=== PATIENT | female | born 2005 | race Caucasian/White ===

== ENCOUNTER 2023-02-24 21:35 | Emergency (ER) | payer BC, SELFPAY ==
[2023-02-24 21:40] VITALS: BP 147/103; PULSE 74; RESP 16; TEMP 36.4; O2SAT 98
--- NOTE | 2023-02-24 21:40 | CRLHL7_ITS ---
For Patients: As a result of the Cures Act, medical imaging exams and procedure reports are released immediately into your electronic medical record. You may view this report before your referring provider. If you have questions, please contact your health care provider. Indication: Trauma. Technique: Right foot, 3 views. Comparison: None. Findings: Bones: Alignment is normal. No fractures or bone lesions. Joint spaces: Unremarkable. Soft tissues: Unremarkable. Impression: No sign of acute injury. Dictated by Rico Manuel MD @ 02/24/2023 11:50:56 PM (Electronically Signed)
--- NOTE | 2023-02-24 21:40 | CRLHL7_ITS ---
For Patients: As a result of the Cures Act, medical imaging exams and procedure reports are released immediately into your electronic medical record. You may view this report before your referring provider. If you have questions, please contact your health care provider. INDICATION: Fall, pain. TECHNIQUE: Lumbar spine 3 view. COMPARISON: None. FINDINGS: Bones: Alignment is normal. No fractures or significant bone lesions. Joints: Disc spaces and facets are unremarkable. Soft tissues: Right upper quadrant clips likely related to prior cholecystectomy. IUD noted within the pelvis.. Dictated by Rico Manuel MD @ 02/24/2023 11:52:13 PM (Electronically Signed)
--- NOTE | 2023-02-24 21:40 | CRLHL7_ITS ---
For Patients: As a result of the Century Cures Act, medical imaging exams and procedure reports are released immediately into your electronic medical record. You may view this report before your referring provider. If you have questions, please contact your health care provider. Indication: Trauma. Technique: Right ankle, 3 views. Comparison: None. Findings/Impression: Bones: Alignment is normal. No fractures or bone lesions. No sign of acute injury. Joint spaces: Unremarkable. Soft tissues: Mild soft tissue swelling surrounding the ankle.. Dictated by Rico Manuel MD @ 02/24/2023 11:52:48 PM (Electronically Signed)
--- NOTE | 2023-02-24 21:48 | ED_ITS ---
HPI - Extremity Injury (Lower) General Date Seen: 02/24/23 Chief Complaint: Extremity Pain/Injury, Lower Stated Complaint: fall on ankle/foot Time Seen by Provider: 02/24/23 21:40 Source: patient and RN notes reviewed Mode of arrival: wheelchair Limitations: no limitations History of Present Illness HPI Narrative: This 17-year-old female is brought back in a wheelchair with complaint of pr imarily right ankle and foot pain. She was going down steps, slid and her foot and ankle went under her. She is also complaining of low back pain. She does have baseline low back issues, states she has a disc issue in her back. She did land on her back, has increased pain. No neurologic changes on questioning from her back. She does feel like the toes are may be able tingly on the right foot at times. She is moaning, breathing heavily at times as she moves from the wheelchair to the bed. Does not stand on the right foot when she moves to the bed. She does notably hold the leg up as she is moving over to the bed from the wheelchair. She did not hit her head, no loss of consciousness. Nothing else is injured. This happened just prior to arrival. MD complaint: ankle injury, foot injury and other (Low back) Related Data Allergies Allergy/AdvReac Type Severity Reaction Status Date / Time azithromycin [From Zithromax] Allergy Intermediate Hives Verified 02/24/23 21:43 codeine Allergy Intermediate Hives Verified 02/24/23 21:43 guaifenesin [From Robitussin] Allergy Intermediate Hives Verified 02/24/23 21:43 Review of Systems Narrative: As per HPI. Exam Const: Vital Signs, click to edit/add: Vital Signs - 24 hr 02/24/23 21:40 02/24/23 22:57 Temperature 97.5 F L Pulse Rate [Right Pulse Oximeter] 74 52 L Respiratory Rate 16 18 Blood Pressure [Le ft Upper Arm] 147/103 H 141/58 H Pulse Oximetry 98 97 Oxygen Delivery Me thod Room Air Room Air This 17-year-old female is breathing rapidly at times, does complain of pain when I palpate midline throughout her lumbar spine, bilaterally paraspinous and out from there in the soft tissues. I see no evidence of any ecchymosis or abrasion, no traumatic change of the skin. She did transfer herself over from the wheelchair to the bed, did hold the right leg up but did not step on it. She has no pain around the knee, no effusion. She complains of pain diffusely about the ankle, over the medial malleolus but more so the lateral malleolus, over the ankle mortise, over the right 5th metatarsal and over the dorsum of the midfoot and into the metatarsals. States she can feel me touch her toes but sta neal they feel numb and tingly. Foot is warm, normal coloration. The ankle may have little more swelling about it when I compare it to her left side. She indeed does seem somewhat anxious on arrival. Documenting provider has reviewed patient's vital signs: yes Course Course ED Course: Reviewed with patient that we would be getting x-rays. Will do her lumbar spine, her right ankle and foot is am not able to isolate this to just the ankle or foot. We should be able to get these quickly at this time. She is hemodynamically stable. Will continue to monitor her here. When she comes back from x-ray, will have staff get her an ice pack for the foot and ankle. Reevaluation(s) Time of Reevaluation #1: 22:52 Reevaluation #1: Patient has ice pack on, is resting comfortably. Reviewed with her that I do not see any acute pathology on my preliminary review of all 3 sets of x-rays. We do need to wait for radiology over-read. She has not taken any Tylenol or ibuprofen, did discuss getting her something. Agreed upon 1000 mg of Tylenol. Time of Reevaluation #2: 23:47 Reevaluation #2: Updated patient that her images were going to be read next, she was next on the list. Reviewed that there was a back log of radiology films and they were behind. Hopefully she will be out of here soon. Time of Reevaluation #3: 23:55 Reevaluation #3: Images have been read, reviewed with patient there are no fractures. She does have a sprain of her ankle. We will get her the gel cast. Vital Signs Vital signs: Initial Vital Signs Temperature 97.5 F L 02/24/23 21:40 Temperature Source Temporal Artery Scan 02/24/23 21:40 Pulse Rate 74 02/24/23 21:40 Pulse Rhythm Regular 02/24/23 21:40 Respiratory Rate 16 02/24/23 21:40 Blood Pressure 147/103 H 02/24/23 21:40 Blood Pressure Mean 117 H 02/24/23 21:40 Blood Pressure Position Semi-Fowlers 02/24/23 21:40 Pulse Oximetry 98 02/24/23 21:40 Oxygen Delivery Method Room Air 02/24/23 21:40 Vital Signs Temperature 97.5 F L 02/24/23 21:40 Pulse Rate 74 02/24/23 21:40 Respiratory Rate 16 02/24/23 21:40 Blood Pressure 147/103 H 02/24/23 21:40 Pulse Oximetry 98 02/24/23 21:40 Oxygen Delivery Method Room Air 02/24/23 21:40 Temperature 97.5 F L 02/24/23 21:40 Pulse Rate 52 L 02/24/23 22:57 Respiratory Rate 18 02/24/23 22:57 Blood Pressure 141/58 H 02/24/23 22:57 Pulse Oximetry 97 02/24/23 22:57 Oxygen Delivery Method Room Air 02/24/23 22:57 MDM - Extremity Injury (Lower) Imaging Data XR lumbar spine: Attestation: I have reviewed the pertinent imaging results. My impression: I do not appreciate any significant pathology on her lumbar films, await Radiology over-read. Radiologist's impression: Patient: [facility] Facility:?[facility] Patient ID:?[id number] Site Patient ID:?[id number]. Site :?[id number] Study:?XRay Spine Lumbar 3 VIEWS-02/24/2023 10:15:05 PM Ordering Physician:Dany Mederos Final Report: INDICATION: Fall, pain. TECHNIQUE: Lumbar spine 3 view. COMPARISON: None. FINDINGS: Bones: Alignment is normal. No fractures or significant bone lesions. Joints: Disc spaces and facets are unremarkable. Soft tissues: Right upper quadrant clips likely related to prior cholecystectomy. IUD noted within the pelvis.. Dictated by Rico Manuel MD @ 02/24/2023 11:52:13 PM (Electronic Signature) XR right ankle: Attestation: I have reviewed the pertinent imaging results. My impression: I do not see any fracture. Radiologist's impression: Patient: [facility] Facility:?[facility] Patient ID:?[id number] Site Patient ID:?[id number]. Site :?2003 Study:?XRay Extremity Right ANKLE 3 VIEWS-02/24/2023 10:15:44 PM Ordering Physician:Dany Mederos Final Report: Indication: Trauma. Technique: Right ankle, 3 views. Comparison: None. Findings/Impression: Bones: Alignment is normal. No fractures or bone lesions. No sign of acute injury. Joint spaces: Unremarkable. Soft tissues: Mild soft tissue swelling surrounding the ankle.. Dictated by Rico Manuel MD @ 02/24/2023 11:52:48 PM (Electronic Signature) XR right foot: Attestation: I have reviewed the pertinent imaging results. My impression: No acute pathology or fracture on my preliminary review. Radiologist's impression: Patient: [facility] Facility:?[facility] Patient ID:?[id number] Site Patient ID:?[id number]. Site :?2003 Study:?XRay Extremity Right FOOT 3 VIEWS-02/24/2023 10:14:04 PM Ordering Physician:?Fide Mederos Final Report: Indication: Trauma. Technique: Right foot, 3 views. Comparison: None. Findings: Bones: Alignment is normal. No fractures or bone lesions. Joint spaces: Unremarkable. Soft tissues: Unremarkable. Impression: No sign of acute injury. Dictated by Rico Manuel MD @ 02/24/2023 11:50:56 PM (Electronic Signature) Critical Care Time Critical Care Time Critical Care Time: No Discharge Plan Discharge Clinical Impression: Fall Qualifiers: Encounter type: initial encounter Qualified Code(s): W19.XXXA - Unspecified fall, initial encounter Low back pain Qualifiers: Chronicity: acute Back pain laterality: bilateral Sciatica presence: without sciatica Qualified Code(s): M54.50 - Low back pain, unspecified Ankle sprain Qualifiers: Encounter type: initial encounter Involved ligament of ankle: unspecified ligament Laterality: right Qualified Code(s): S93.401A - Sprain of unspecified ligament of right ankle, initial encounter Patient Disposition: Home, Self-Care Condition: Stable Instructions: Ankle Sprain (ED), Acute Low Back Pain (ED) Additional Instructions: Ice painful areas for the next few days to help decrease inflammation. Tylenol and/or ibuprofen per bottle directions as needed for pain control. Follow-up with your primary care provider if your symptoms are not improving over the next week or if there are other concerns. May resume activity as tolerated. Use the gel splint for comfort instability initially. Activity Level: Activity as Tolerated Follow Up/Referrals: Judi Pettit, THERESE, COMMERCIAL INTERN [Primary Care Provider] - Stand Alone Forms: [place] Info Instructions
[2023-02-24] MEDS: ACETAMINOPHEN 500 MG TABLET 1000 MG PO (22:56)
[2023-02-24 22:57] VITALS: BP 141/58; PULSE 52; RESP 18; O2SAT 97
== END 2023-02-25 00:17 | disposition home or self-care (01) ==
PROVIDERS: Emergency Provider Family Medicine; PCP Nurse Practitioner Family
DX: M54.50 Low back pain, unspecified (principal); S93.401A Sprain of unspecified ligament of right ankle, initial encounter; W10.9XXA Fall (on) (from) unspecified stairs and steps, initial encounter
CPT/HCPCS: 29515; 72100; 73610; 73630; 99283; 99284; A9270

== ENCOUNTER 2023-05-10 16:17 | Emergency (ER) | payer BC, SELFPAY ==
[2023-05-10 16:33] VITALS: BP 131/89; PULSE 81; RESP 18; TEMP 36.4; O2SAT 94; BMI 43.9
--- NOTE | 2023-05-10 17:06 | ED_ITS ---
HPI - General Adult General Chief complaint: Altered Mental Status Stated complaint: Headache, back ache, confusion Time Seen by Provider: 05/10/23 16:58 History of Present Illness HPI narrative: This 17-year-old female comes in with her mother. She is reporting a headache that began about 2 or 3 hours prior to arrival. She also reports some jerking sensations in the posterior aspect of her neck. She includes some feeling of confusion also in her ability to think. She does get headaches on occasion. She states that this headache is mostly in the backside of her neck and head. She does not report any nausea or vomiting. Related Data Allergies Allergy/AdvReac Type Severity Reaction Status Date / Time azithromycin [From Zithromax] Allergy Intermediate Hives Verified 02/24/23 21:43 codeine Allergy Intermediate Hives Verified 02/24/23 21:43 guaifenesin [From Robitussin] Allergy Intermediate Hives Verified 02/24/23 21:43 Review of Systems Status of ROS: Reports: 10 or more systems reviewed and unremarkable except as noted in History and below Narrative: Constitutional: No fevers, no weight gain or loss. Eyes: No discharge. No vision changes. HENT: No congestion, no sore throat, no ear pain. Cardiovascular: No chest pain, no palpitations. Respiratory: No shortness of breath, no wheezes, no cough. Gastrointestinal: No abdominal pain, no vomiting, no diarrhea. Genitourinary: No dysuria, no hematuria. Musculoskeletal: Normal range of motion. Skin: No rashes, no pruritis. Neurological: No dizziness, weakness, sensory change, speech change. Repetitive jerking sensation in her posterior neck. Endo/Heme/Allergies: No bruising or bleeding. No polydipsia. Pysch: no suicidality, no anxiety, no insomnia. All other systems reviewed and are negative. Exam Narrative: Exam Narrative: Constitutional: Well-developed, well-nourished, no acute distress. HEENT: Normocephalic, atraumatic. Neck: Normal range of motion. Nontender. Supple. Heart: Regular. No murmurs. Normal rate. Intact distal pulses. Lungs: Clear to auscultation. No chest discomfort. No wheezes, rhonchi, or rales. Abdomen: Normal bowel sounds. Nontender. No rebound tenderness. Genitalia: Deferred. Back: No midline tenderness. Normal range of motion. Extremities: Normal range of motion. No injury. Skin: Intact. No rash. Warm. No erythema or pallor. Neurologic: No altered sensation. No weakness. Alert and oriented. No facial asymmetry. Tongue is midline. [id number] is normal. No pronator drift. Cigar Making Machine Operator strength is equal bilaterally. She is able to raise each leg to my hand. The myoclonic jerks involving her posterior neck are repetitive except when she was undergoing these neurologic tests she did not have any such jerks. Psychiatric: No suicidality. No anxiety or depression. No insomnia. Nursing notes and vitals signs are reviewed. Const: Vital Signs, click to edit/add: Vital Signs - 24 hr 05/10/23 16:33 Temperature 97.5 F L Pulse Rate [Right] 81 Respiratory Rate 18 Blood Pressure [Ri ght Upper Arm] 131/89 Pulse Oximetry 94 Oxygen Delivery Me thod Room Air Course Vital Signs Vital signs: Initial Vital Signs Temperature 97.5 F L 05/10/23 16:33 Temperature Source Temporal Artery Scan 05/10/23 16:33 Pulse Rate 81 05/10/23 16:33 Pulse Rhythm Regular 05/10/23 16:33 Pulse Strength 3+ Normal 05/10/23 16:33 Respiratory Rate 18 05/10/23 16:33 Blood Pressure 131/89 05/10/23 16:33 Blood Pressure Mean 103 05/10/23 16:33 Blood Pressure Position Supine 05/10/23 16:33 Pulse Oximetry 94 05/10/23 16:33 Oxygen Delivery Method Room Air 05/10/23 16:33 Vital Signs Temperature 97.5 F L 05/10/23 16:33 Pulse Rate 81 05/10/23 16:33 Respiratory Rate 18 05/10/23 16:33 Blood Pressure 131/89 05/10/23 16:33 Pulse Oximetry 94 05/10/23 16:33 Oxygen Delivery Method Room Air 05/10/23 16:33 Temperature 97.5 F L 05/10/23 16:33 Pulse Rate 81 05/10/23 16:33 Respiratory Rate 18 05/10/23 16:33 Blood Pressure 131/89 05/10/23 16:33 Pulse Oximetry 94 05/10/23 16:33 Oxygen Delivery Method Room Air 05/10/23 16:33 Medications Administered Medications: Discontinued Medications Generic Name Dose Route Start Last Admin Trade Name Thiago PRN Reason Stop Dose Admin Diphenhydramine HCl 25 mg 05/10/23 17:05 05/10/23 17:34 Diphenhydramine 50 Mg/Ml Inj IVP 05/10/23 17:06 25 mg ONCE ONE Administration Ketorolac Tromethamine 30 mg 05/10/23 17:05 05/10/23 17:32 Ketorolac 30 Mg/Ml Inj IVP 05/10/23 17:06 30 mg ONCE ONE Administration Lorazepam 0.5 mg 05/10/23 17:05 05/10/23 17:35 Lorazepam 2 Mg/Ml Inj IV 05/10/23 17:06 0.5 mg ONCE ONE Administration Ondansetron HCl 4 mg 05/10/23 17:05 05/10/23 17:35 Ondansetron 2 Mg/Ml Inj IVP 05/10/23 17:06 4 mg ONCE ONE Administration Medical Decision Making MDM Narrative Medical decision making narrative: This patient comes in reporting headache and some jerking of the muscles in the posterior neck. This began about 2 or 3 hours prior to arrival. Her neurologic exam is normal. Her vital signs also are all within normal range. I did take her through simple neurologic testing and when doing so the jerking sensation in her neck stopped as she was concentrating on cooperating with the neurologic tests. The patient did receive IV doses of Toradol 30 mg, Ativan 0.5 mg, and Benadryl 25 mg. This brought great resolution to her symptoms. She is okay to be discharged home. I did provide a return to work note. Discharge Plan Discharge Clinical Impression: Migraine Patient Disposition: Home w/ Parent or Adult Condition: Improved Additional Instructions: Use [id number] medicines as needed and directed. Follow up with MD return if worsening. Follow Up/Referrals: Judi Pettit, THERESE, EMPLOYEE SERVICE OFFICER [Primary Care Provider] - Stand Alone Forms: [employer] Info Instructions
--- OUTSIDE RECORDS SUMMARY | 2023-05-10 17:24 | XMS_ITS | Continuity of Care Document ---
Author Name Unknown Organization [facility] Address [address] [address] [place] [address] Phone Care Team Providers Care Hooker Operator Name Role Phone Abdiel GRIMM, Gisselle Unavailable Unavaila ble Allergies, Adverse Reactions, Alerts Substance Reaction Status Criticality guaifenesin Active No Information CODEINE PHOSPHATE Active No Informa tion azithromycin Active No Information WARNIN allergy(ies) could not be collected because the type is not supported. Please contact the source practice for further details. Medications Medication Instructions Dosage Effective Dates (start - stop) Status Comments Allergy Shots (unknown strength) inject 1 syringe by intramuscular route every 3 - 14 days Not Available - Active metformin 500 mg tablet take 1 tablet by oral route 2 times every day with morning and evening meals 500 MG - Active Claritin 10 mg tablet take 1 tablet by oral route every day 10 MG - Active Vitamin D3 2,000 unit capsule take 1 capsule by oral route every day 1 capsule - Active montelukast 10 mg tablet take 1 tablet by oral route every day in the evening 10 MG - Active Qvar 40 mcg/actuation Metered Aerosol oral inhaler inhale 2 puff by inhalation route 2 times every day - Active fluticasone 50 mcg/actuation nasal spray,suspension inhale 1 spray by intranasal route every day in each nostril 50 MCG - Active azelastine 137 mcg (0.1 %) nasal spray aerosol spray 2 spray by intranasal route 2 times every day in each nostril as needed 2 spray - Active ProAir HFA 90 mcg/actuation aerosol inhaler inhale 2 puff by inhalation route every 4 - 6 hours as needed - Active albuterol sulfate 2.5 mg/3 mL (0.083 %) solution for nebulization inhale 3 milliliter by nebulization route every day as needed 2.5 MG - Active multivitamin tablet take 1 tablet by oral route every day 1 tablet - Active omeprazole 20 mg capsule,delayed release take 2 capsule by oral route every day 30 minutes to 1 hour before a meal 40 MG - No Longer Active nortriptyline 25 mg capsule take 1 capsule by oral route every day 25 MG - No Longer Active Allergy Shots unknown Intramuscular inject 1 dose by IM route 3- 14 times every day - No Longer Active Procedures Procedure Date Offic/outpt E&m Estab Low-mod 6 Ugi Endo; W/bx 1/mx Routine Serum Collection Offic Cons New/estab Mod Bld Ct; Hg/pltlt Ct Auto/compl 16 Sed Rate, Erythrocyte; Auto C-reactive Prot Lipase Offic Cons New/estab Mod-hi 60 07 Advance Directives Directive Yes / No Effective Date File Name No Information Encounters Encounter Description Practice Location Reason(s) For Visit Diagnoses Date Provider Providers Copied on Encounter Offic/outpt E&m Estab Low-mod [facility], [address] [address], [place], [place], [id number], [place] tel:[phone] [facility] GI Symptoms or Concerns (chief complaint) Nausea and vomiting, unspecified intactability , vomiting of unspecified typeBiliary dyskinesia 6 Abdiel Pitts. [address] [facility], [facility] [address], [place], [place], [id number], [place]. tel:[phone] Referring Provider: [place], [address] [place], [address]. tel:[phone] [facility], [address] [address], [place], [id number], tel:[phone] [facility] Biliary dyskinesia 6 No Information [facility], [address] [address], [place], [id number], tel:[phone] [facility] No Information 6 Jd Verma. [address] [facility], [facility] [address], [place], [place], [id number], [place]. tel:[phone] Referring Provider: [place], [address] [place], [address]. tel:[phone] Offic Cons New/estab Mod [facility], [address] [address], [place], [id number], tel:[phone] [facility] GI Symptoms or Concerns (chief complaint) Nausea and vomiting, unspecified intactability , vomiting of unspecified typeRUQ painObesity (BMI 30-39.9) 0 6 No Information Referring Provider: [place], [address] [place], [address]. tel:[phone] Offic Cons New/estab Mod-hi 60 [facility], [address] [address], [facility] [place] [id number], tel:[phone] [facility] Constipation Unspecified 7 No Information Family History Family Member Type Diagnosis Age At Onset Mother Problem (finding) gallbladder disease Mother Problem (finding) diverticulitis of colon Father Problem (finding) GERD Mother Problem (finding) GERD Brother Problem (finding) Thyroid disorder Immunizations Vaccine Date Status Comments Influenza virus vaccine, injectable, quadrivalent, split virus, preservative free, 3 years or older Fluarix Quad administered Note: Invalid docume nted admin date was . ; Source: Other Provider Payers Payer name Insurance type Covered democrat ID Authoriza tion(s) No Information Social History Type Description Quantity Date Captured Comments Alcohol Use Details Unknown Caffeine Use Details Unknown Tobacco Use Status No Information Smoking Status No Information Sex Female Vital Signs Date / Time: Height Weight BMI Pulse Rate Blood Pressure Temperature Respiratory Rate Body Surface Area Head Circumference Head Circ. Percentile Wt./Forrest. Percentile BMI percentile Pulse Ox Inhaled Ox 1:13 PM 66.22 in 117.300 kg (258.60 lbs) 41.4 6 kg/m eter (2) 67 /min 124/68 mm[Hg] 99 Chief Complaint And Reason For Visit From encounter dated '01/03/2016 13:30'. GI Symptoms or Concerns (chief complaint). Description: Supriya is a 10-year-old female accompanied to clinic by her mother.Supriya is here for a followup evaluation regarding her cholecystectomy. She underwent a laparoscopic cholecystectomy in September of 2015 after being diagnosed with biliary dyskinesia. Her HIDA scan was completed in September of 2015, which showed her ejection fraction to be calculated at 4.5%. She is overall feeling very well. She states that the removal of the gallbladder has helped all of her pain significantly. She says she feels really well. She is getting used to eating all sorts of foods again. She is not experiencing any diarrhea. She has a good appetite. She has one to twobowel movements per day. She denies diarrhea, blood or painful defecation. Overall, family is very pleased with her progress. She states that she will be working with a weight management clinic, although she has not started this yet. She is currently at the 99th percentile for her weight at 117.3 kilos. Reason For Referral Reason For Referral No Information Plan Of Treatment Date Type Action Status Referral Ordered: HIDA Scan WITH Ejection Fraction Appointment date/timeframe: -today ordered History Of Present Illness Encounter Date Complaint History Of Prese nt Illness GI Symptoms or Concerns Supriya i s a 10-year-old female accompanied to clinic by her mother.Supriya is here for a followup evaluation regarding her cholecystectomy. She underwent a laparoscopic cholecystectomy in September of 2015 after being diagnosed with biliary dyskinesia. Her HIDA scan was completed in September of 2015, which showed her ejection fraction to be calculated at 4.5%. She is overall feeling very well. She states that the removal of the gallbladder has helped all of her pain significantly. She says she feels really well. She is getting used to eating all sorts of foods again. She is not experiencing any diarrhea. She has a good appetite. She has one to two bowel movements per day. She denies diarrhea, blood or painful defecation. Overall, family is very pleased with her progress. She states that she will be working with a weight management clinic, although she has not started this yet. She is currently at the 99th percentile for her weight at 117.3 kilos. GI Symptoms or Concerns Supriya francois is an 9-year-old girl seen in [facility] with complaints of chronic nausea and vomiting. She had been seen in 2006 here at [facility] with constipation issues, which all resolved and she has done well for several years. However, in late June, she had a two-week period of nausea and vomiting. She had abdominal pain, but no diarrhea. Her classmate also had vomiting. Since this time, she has continued to have problems with nausea and vomiting. Her nausea lasts all day and does not seem to be made better or worse by anything in particular. She has vomiting intermittently and in the last week, vomited three to four times. Again, no specific foods or activities seem related to her vomiting. She feels like her nausea and vomiting in slowly getting worse. She is having no heartburn issues. She was started on omeprazole 40 mg once daily and Zofran as needed, but she really takes this about once a week. She has also develo Functional Status Date Functional Assessmen t No Information Instructions Date Instruction Additional Infor michelle 1. Continue the [facility] ht management program as recommended by the endocrinology clinic.2. Followup will be in this clinic just as needed.3. Mother and Supriya verbalized understanding of the above plan and had no additional questions. Related to Nausea and vomiting, unspecified intactability, vomiting of unspecified type We will obtain CBC w ith diff, C-reactive proteins, sed rate, lipase, and occult blood tests today. I will order a HIDA scan with gallbladder ejection fraction to address the possibility of biliary dyskinesia. I have also ordered an upper GI endoscopy with biopsies. I recommend followup in one month at which time all of this information should be completed and we will discuss further recommendations. Related to Nausea and vomiting, unspecified intactability, vomiting of unspecified type EGD Related to Nause a with vomiting, unspecified HIDA Scan WITH Ejection Fraction Related to Right upper quadrant pain Assessments Type Assessment Date assessment Nausea and vomiting, unspecified intactability, vomiting of unspecified type assessment Biliary dyskinesia impression The cause for Supriya 's pain was related to her biliary dyskinesia. She is significantly improved postcholecystectomy. She has been able to wean off of her omeprazole and does not experience any reflux-like symptoms. She is not experiencing diarrhea. Mental Status Date Cognitive Assessment Orientation - [place] ed to time, place, person, situation. Patient Care Teams Name Effective Dates (start - stop) Status Members No Information
[2023-05-10] MEDS: KETOROLAC 30 MG/ML inj IVP (17:32)
[2023-05-10] MEDS: diphenhydrAMINE 50 MG/ML inj 25 MG IVP (17:34)
[2023-05-10] MEDS: LORazepam 2 MG/ML inj 0.5 MG IV (17:35)
[2023-05-10] MEDS: ONDANSETRON 2 MG/ML inj 4 MG IVP (17:35)
== END 2023-05-10 18:56 | disposition home or self-care (01) ==
PROVIDERS: Emergency Provider Emergency Medicine Emergency Medical Services; PCP Nurse Practitioner Family
DX: G43.909 Migraine, unspecified, not intractable, without status migrainosus (principal)
CPT/HCPCS: 96374; 96375; 99284; J1200; J1885; J2060; J2405

== ENCOUNTER 2024-11-15 14:59 | Emergency (ER) | payer BC, SELFPAY ==
--- OUTSIDE RECORDS SUMMARY | 2024-08-31 14:10 | XMS_ITS | Encounter Summary ---
Author Organization [facility] Address [address] [place] [address]. [place] [address] Care Team Providers Care Assistant Distribution Manager Name Role Phone Judi Pettit NP Primary Care Provider [phone] Reason for Visit * Rehab Therapy Physical Therapy (Urgent: 3-5 Days) - Pending Review Specialty Diagnoses / Procedures Referred By Chao barton Referred To Contact Diagnoses Piriformis syndrome, right Strain of lumbar region, initial encounter Shivani Walters APRN [employer] [address] [place] [address] Phone: tel: fax: Referral ID Status Reason Start Date Expiration Date V isits Requested Visits Authorized [id number] Pending Review 07/24/2024 07/24/2025 1 1 Encounter Details Date Type Department Care Team (Latest Contact Info) Description 08/31/2024 2:10 PM CDT Therapy Visit [facility] [address] [place] [address] Morgan Henderson, PT [address] [phone] Low back pain (Primary Dx); Hip pain, right Social History Tobacco Use Types Packs/Day Years Used Date Smoking Tobacco: Former Cigarettes Smokeless Tobacco: Never Comments:Mom smokes outside. 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 Patient has failed to schedule further appointments. Equipment Issued: none Discharge Plan: Patient to continue home program. 08/31/24 0500 Appointment Info Signing clinician's name / credentials Morgan Henderson PT Total/Authorized Visits 6 Visits Used 2 Medical Diagnosis Right piriformis syndrome PT Tx Diagnosis Low back pain, right hip pain, core weakness Progress Note/Certification Start of Care Date 08/17/24 Onset of illness/injury or Date of Surgery 07/06/24 Therapy Frequency 1x/week Predicted Duration 6 Certification date from 08/17/24 Certification date to 09/28/24 Progress Note Completed Date 08/17/24 Department Editor Department Editor Present No GOALS PT Goals 2 PT Goal 1 Goal Identifier Standing Goal Description Patient will be able to stand for 30 minutes before onset of symptoms Rationale to maximize safety and independence with performance of ADLs and functional tasks;to maximize safety and independence within the community;to maximize safety and independence with self cares Target Date 09/28/24 PT Goal 2 Goal Identifier Walking Goal Description able to walk 30+ minutes Rationale to maximize safety and independence with performance of ADLs and functional tasks;to maximize safety and independence within the community Target Date 09/28/24 Subjective Report Subjective Report A little better. Standing, walking is better. Objective Measures Objective Measures Objective Measure 1;Objective Measure 2 Objective Measure 1 Objective Measure lx arom Details flexion 50 (HS), ext 75+. R SB +. FNTT and SLR - R and L. Cont ++ with GI PA L4, 5. Objective Measure 2 Objective Measure hip rom (ER), IR prone Treatment Interventions (PT) Interventions Therapeutic Procedure/Exercise;Neuromuscular Re-education;Manual Therapy Therapeutic Procedure/Exercise Therapeutic Procedures: strength, endurance, ROM, flexibility minutes (57825) 23 Ther Proc 1 Education on plan of care, progression of home exercise program PTRx Ther Proc 1 Piriformis Stretch Above 90 Degress Supine PTRx Ther Proc 1 - Details 1 x 30 sec PTRx Ther Proc 2 Piriformis Stretch Below 90 Degrees Supine PTRx Ther Proc 2 - Details 2 x 30 sec, R PTRx Ther Proc 3 Seated Piriformis Stretch PTRx Ther Proc 3 - Details VR PTRx Ther Proc 4 Prone Positioning PTRx Ther Proc 4 - Details 1 x 4 PTRx Ther Proc 5 Prone On Elbows PTRx Ther Proc 5 - Details 1 x 30 sec PTRx Ther Proc 6 Bridging #1 PTRx Ther Proc 6 - Details 1 x 5 x 5 sec Skilled Intervention Yes Patient Response/Progress Tolerated well Neuromuscular Re-education Neuromuscular re-ed of mvmt, balance, coord, kinesthetic sense, posture, proprioception minutes (45362) 15 Neuro Re-ed 1 education on core, posture, working on prone lying PTRx Neuro Re-ed 1 Abdominal Brace Transverse Abdominis PTRx Neuro Re-ed 1 - Details 1 x 5 x 5 sec holds. PTRx Neuro Re-ed 2 Supine Abdominal Exercise #3 (Marching) PTRx Neuro Re-ed 2 - Details 1 x 10 R and L Skilled Intervention y Patient Response/Progress rodríguez well Education Learner/Method Patient;Listening;Demonstration;Pictures/Video Education Comments Patient participated in their education Plan Home program patient participated and likes the option of using a interactive video tool like PTRx Plan for next session core, add standing, hip abd Total Session Time Timed Code Treatment Minutes 38 Total Treatment Time (sum of timed and untimed services) 38 Referring Provider: Shivani Walters documented in this encounter Plan of Treatment Not on file documented as of this encounter Visit Diagnoses Diagnosis Low back pain- Primary Lumbago Hip pain, right Pain in joint, pelvic region and thigh documented in this encounter Care Teams Assistant Distribution Manager Relationship Specialty [place] [address] [place] [address] PCP - General Family Medicine 08/17/24 documented as of this encounter
--- OUTSIDE RECORDS SUMMARY | 2024-11-15 15:01 | XMS_ITS | Clinical Summary ---
Author Organization [facility] Address [address] [place] [address]. [place] [address] Care Team Providers Care Record Tester Name Role Phone Judi Pettit NP Primary Care Provider [phone] Allergies Active Allergy Reactions Criticality Noted Date Comments Codeine Hives 03/19/2016 Codeine-Guaifenesin Hives 03/19/2012 Hives after zithromax and Robitussin AC given for cough--unclear which is etiology for reaction. Azithromycin Hives 03/19/2016 Medications Cholecalciferol (VITAMIN D3 PO) Take 2,000 Units by mouth daily. Active beclomethasone (QVAR) 40 MCG/ACT Inhaler Inhale 2 puffs into the lungs 2 times daily. Active azelastine (ASTELIN) 0.1 % nasal spray [place] 1 spray into both nostrils daily Active albuterol (PROAIR HFA, PROVENTIL HFA, VENTOLIN HFA) 108 (90 BASE) MCG/ACT inhaler Inhale 2 puffs into the lungs every 6 hours as needed for shortness of breath or wheezing. Active albuterol (2.5 MG/3ML) 0.083% nebulizer solution Take 1 vial by nebulization every 6 hours as needed for shortness of breath or wheezing. Active loratadine (CLARITIN) 10 MG tablet Take 10 mg by mouth daily. Active FLUoxetine HCl, PMDD, 20 MG TABS Take 30 mg by mouth daily. Active albuterol (PROVENTIL) (2.5 MG/3ML) 0.083% neb solutionIndicat ions:Influenza A Take 1 vial (2.5 mg) by nebulization every 6 hours as needed for shortness of breath, wheezing or cough. 90 mL 5 Active albuterol (PROAIR HFA/PROVENTIL HFA/VENTOLIN HFA) 108 (90 Base) MCG/ACT inhalerIndicati ons:Influenza A Inhale 2 puffs into the lungs every 6 hours as needed for shortness of breath, wheezing or cough. 18 g 5 Active hydrOXYzine (VISTARIL) 50 MG capsule TAKE ONE OR TWO CAPSULES BY MOUTH EVERY SIX HOURS NEEDED FOR ANXIETY OR SLEEP Active methocarbamol (ROBAXIN) 500 MG tabletIndicatio ns:Hip pain, right,Right flank pain Take 1 tablet (500 mg) by mouth 4 times daily as needed for muscle spasms. 20 tablet 5 Active Active Problems Problem Noted Date Diagnosed Date Dysmetabolic syndrome X 03/20/2016 Childhood obesity 03/19/2016 Chronic pain of both knees 03/19/2016 Chronic midline back pain, unspecified back loca tion 03/19/2016 Depression with anxiety 03/19/2016 Physical deconditioning 03/19/2016 Uncomplicated asthma, unspecified asthma severit y 03/19/2016 Acanthosis nigricans 03/19/2016 Resolved Problems Problem Noted Date Diagnosed Date Resolved Date Low back pain 08/17/2024 10/13/2024 Hip pain, right 08/17/2024 10/13/2024 Encounters Date Type Department Care Team Description 09/05/2024 9:10 AM CDT Office Visit [facility] [address] [place] [address] Tracy Roach NP Dental infection (Primary Dx) 09/05/2024 Travel 08/31/2024 2:10 PM CDT Therapy Visit [address] [address] Morgan Henderson, PT Low back pain (Primary Dx); Hip pain, right 08/31/2024 Travel 08/17/2024 10:40 AM CDT Therapy Visit [address] [address] Shivani Walters APRN CNP Skansberg, David A, PT Low back pain (Primary Dx); Piriformis syndrome, right; Strain of lumbar region, initial encounter; Hip pain, right 08/17/2024 Travel from Last 3 Months Immunizations Immunization Administration Dates Next Due Comvax (HIB/HepB) 06/19/2004,04/17/2004,02/18/20 04 DTAP (<7y) 06/19/2004,04/17/2004,02/18/2004 Pneumococcal (PCV 7) 06/19/2004,02/18/2004 Poliovirus, inactivated (IPV) 06/19/2004, 004,02/18/2004 Social History Tobacco Use Types Packs/Day Years Used Date Smoking Tobacco: Former Cigarettes Smokeless Tobacco: Never Tobacco Cessation:Counseling Given: Not Answered Comments:Mom smokes outside. 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 Gender Identity Not on file Sexual Orientation Not on file Last Filed Vital Signs Vital Sign Reading Time Taken Comments Blood Pressure 112/70 09/05/2024 9:15 AM CDT Pulse 68 09/05/2024 9:15 AM CDT Temperature 36.9 C (98.4 F) 09/05/2024 9:15 AM CDT Respiratory Rate 16 09/05/2024 9:15 AM CDT Oxygen Saturation 100% 09/05/2024 9:15 AM CDT Inhaled Oxygen Concentration - - Weight 115.7 kg (255 lb) 09/05/2024 9:15 AM CDT Height 167.6 cm (5' 6) 09/05/2024 9:15 AM CDT Body Mass Index 41.16 09/05/2024 9:15 AM CDT Plan of Treatment Health Maintenance Due Date Last Done Comments ADVANCE CARE PLANNING 2003 ANNUAL REVIEW OF HM ORDERS 2003 ASTHMA ACTION PLAN 2003 ASTHMA CONTROL TEST 2003 MENINGITIS B VACCINE (1 of 2 - Standard) 2019 YEARLY PREVENTIVE VISIT 04/27/2021 04/27/2020 PNEUMOCOCCAL VACCINE: PEDIAT RICS (0 to 5 YEARS) AND AT-RISK PATIENTS (6 to 49 YEARS) (1 of 2 - PCV) 12/08/2022 06/19/2004, 02/18/2004 CHLAMYDIA SCREENING 06/14/2023 06/14/2022, COVID-19 VACCINE (1 - 2023-2 5 season) 2024 PHQ-2 (once per calendar year) 2024 INFLUENZA VACCINE (Season Ended) 2025 02/16/2022, 04/12/2021, 04/27/2020, Additional history exists DTAP/TDAP/TD VACCINE (6 - Td or Tdap) 01/03/2026 01/04/2016, 08/27/2008, 06/19/2004, Additional history exists ZOSTER VACCINE (1 of 2) 12/08/2053 HEPATITIS B VACCINE Completed 06/19/2004, 04/17/2004, 02/18/2004 HPV VACCINE Completed 12/12/2016, 01/04/2016 HIV SCREENING Completed 12/30/2018 MENINGITIS VACCINE Completed 04/27/2020, 01/04/2016 HEPATITIS C SCREENING Completed 02/16/2022 Insurance [facility] [employer] Care Teams Record Tester Relationship Specialty [place] [address] [place] [address] PCP - General Family Medicine 08/17/24
--- OUTSIDE RECORDS SUMMARY | 2024-11-15 15:02 | XMS_ITS | Clinical Summary ---
Author Organization [employer] [facility] Address [address] [place] [address] Care Team Providers Care Skin Care Instructor Name Role Phone Ashley Mcwilliams MBBS Unavailable [phone] Peg Newberry PT Unavailable Reva Fernandes RD Unavailable Judi Pettit RECRUITMENT OFFICER Primary Care Provider [phone] Allergies Active Allergy Reactions Criticality Noted Date Comments Codeine-Guaifenesin Hives 03/19/2012 Hives after zithromax and Robitussin AC given for cough--unclear which is etiology for reaction. Azithromycin Hives 03/18/2012 Hives after zithromax and Robitussin AC given for cough--unclear which is etiology for reaction. Medications hydrOXYzine pamoate (VISTARIL) 50 mg capsuleIndicatio ns:KENDRICK (generalized anxiety disorder),Diffic ulty sleeping TAKE ONE OR TWO CAPSULES BY MOUTH EVERY SIX HOURS NEEDED FOR ANXIETY OR SLEEP 100 Capsule 5 Active albuterol HFA (ProAir HFA) 90 mcg/actuation inhalerIndicatio ns:Moderate persistent asthma, unspecified whether complicated (HC) Inhale 1-2 Puffs by mouth every 4 hours if needed for Shortness Of Breath or Wheezing. 18 g 3 5 Active sertraline 100 mg tabletIndication s:Moderate episode of recurrent major depressive disorder (HC),Generalized anxiety disorder with panic attacks Take 1.5 Tablets (150 mg) by mouth once daily in the morning. 135 Tablet 5 Active buPROPion 150 mg Extended-Release tabletIndication s:Moderate episode of recurrent major depressive disorder (HC),Generalized anxiety disorder with panic attacks Take 1 Tablet (150 mg) by mouth once daily in the morning. 90 Tablet 5 Active mometasone-formo terol (Dulera) 200-5 mcg/actuation inhalerIndicatio ns:Moderate persistent asthma, unspecified whether complicated (HC),Allergic rhinitis due to animal hair and dander Inhale 2 Puffs by mouth two times daily. And 1-2 puffs every four hours as needed for shortness of breath, up to 12 puffs a day total. 13 g 11 5 Active Hospital, Clinic, or Other Facility Administered Medication Ordered Dose Route Frequency Start Date End Date Status levonorgestrel (KYLEENA) 17.5 mcg/24 hr (5 yrs) 19.5 mg intrauterine device (IUD) 1 DeviceIndications:Encounter for IUD insertion 1 Device IU Q 5 YEARS 09/19/2021 Active Active Problems Problem Noted Date Diagnosed Date Vitamin D deficiency 09/29/2024 Morbid obesity, unspecified obesity type 024 Allergic rhinitis due to animal hair and dander 08/19/2023 Seasonal allergies 08/19/2023 Moderate persistent asthma 08/19/2023 Generalized anxiety disorder with panic attacks 04/12/2021 Morbid exogenous obesity 12/30/2020 Meralgia paresthetica of right side 12/30/2020 Moderate episode of recurrent major depressive d isorder 10/13/2020 Generalized anxiety disorder 10/13/2020 Mild persistent asthma without complication 03/20 Insomnia 02/01/2017 ADHD (attention deficit hype ractivity disorder), inattentive type 04/19/2016 Other specified anxiety disorders 04/19/2016 Depression 01/04/2016 Dysmenorrhea in adolescent 01/04/2016 Pediatric body mass index (B IN) of greater than or equal to 95th percentile for age 0801/04/2016 Overview (01/04/2016): [facility] will be seeing Dr. Mckenzie at [facility] for weight management clinic. Reactive airway disease without complication 10/2015 Metabolic syndrome 08/19/2012 Overview (01/28/2017): W Acanthosis Nigricans . See Consult Follow up note July 2012, Dr. Casanova added Metformin. Last visit 03/2016: no changes. F/u in [address] 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 Bone age advanced (age 9yrs). Blood testing. Jan REpeat Bone age again above chron age. Iron deficiency anemia, unspecified 08/07/2006 03/14/2015 Unspecified constipation 08/07/2006 CONJUNCTIVITIS 06/18/2005 08/07/2006 URI 11/14/2004 08/07/2006 Unspecified otitis media 08/04/2004 Encounters Date Type Department Care Team Description 10/02/2024 1:20 PM CDT Office Visit [facility] [address] [facility] [place] [address] Judi Pettit, RECRUITMENT OFFICER Urinary Problem (Frequency); Fatigue (Weight gain) 10/02/2024 Travel 09/01/2024 2:35 PM CDT Office Visit [facility] [address] [place] [address] Judi Pettit, RECRUITMENT OFFICER Medication Management 09/01/2024 Travel from Last 3 Months Immunizations Immunization Administration Dates Next Due DTaP 06/19/2004,04/17/2004,02/18/2004 DTaP-IPV (Kinrix) 08/27/2008 HIB-HepB (Comvax) 06/19/2004,04/17/2004,02/18/20 04 HPV 9 (Gardasil 9) 12/12/2016,01/04/2016 Hepatitis A (Peds) 03/26/2011,09/25/2007 Inactivated Polio Vaccine 06/19/2004,04/17/2004, 02/18/2004 Influenza, IIV4 02/16/2022,,04/27/2020,02/25,01/04/2016,03/14/2015 MENINGOCOCCAL VACCINE 2 VIAL 2MO-55YO (MENVEO) 04/27/2020,01/04/2016 MMR 08/27/2008,02/07/2005 Pneumococcal Conj 20-valent (Prevnar 20) 10/02/2024 Pneumococcal conj 7-Valent (Prevnar 7) 5,02/18/2004 Tdap 01/04/2016 Varicella Vaccine 08/27/2008,02/07/2005 Family History Medical History Relation Name Comments Good Health Brother oldest Good Health Father Other Maternal Aunt gallbladder dz Stroke Maternal Grandfather ~age 70 Migraines Mother Sleep apnea Mother Anxiety disorder Other Depression Other Anesthesia Problem No Family History Blood Disease No Family History Relation Name Status Comments Brother oldest Alive Father Alive Maternal Aunt Maternal Grandfather Alive Mother Alive Other Social History Tobacco Use Types Packs/Day Years Used Date Smoking Tobacco: Never Passive Smoke Exposure: Never Smokeless Tobacco: Never Tobacco Cessation:Counseling Given: No Comments:family members smoke outside Alcohol Use Standard Drinks/Week Comments No 0 (1 standard drink = 0.6 oz pur e alcohol) PHQ-2 Answer Date Recorded PHQ-2 TOTAL SCORE 3 10/01/2024 Social Connections Answer Date Recorded Do you often feel lonely or isolated from those around you? 0 04/28/2024 Financial Resource Strain Answer Date R ecorded Difficulty of Paying Living Expenses 1 04/28/2024 Difficulty of Paying Living Expenses 2 04/28/2024 Food Insecurity Answer Date Recorded Do you worry your food will run out before you are able to buy more? 1 04/28/2024 Transportation Needs Answer Date Record ed Does lack of transportation keep you from medica l appointments? 1 04/28/2024 Does lack of transportation keep you from work, meetings or getting things that you need? 1 04/28/2024 Housing Stability Answer Date Recorded What is your housing situation today? 1 04/28/2024 Utilities Answer Date Recorded Do you have trouble paying f or utilities (for example, heat, electricity, water, phone)? 1 04/28/2024 Comments No Sex and Gender Information Value Date Recorded Sex Assigned at Not on file Legal Sex Female 7:08 AM SOLE TRIMMER Gender Identity Not on file Sexual Orientation Not on file Occupation Industry Job Start Date Job End Date Student Not on file Not on file Not on file Obstetrics History Para Term AB IAB SAB Ectopic Multiple Livin g Live Births 0 0 0 0 0 0 0 0 0 0 Last Filed Vital Signs Vital Sign Reading Time Taken Comments Blood Pressure 120/70 10/02/2024 1:18 PM CDT Pulse 88 10/02/2024 1:18 PM CDT Temperature 36.7 C (98 F) 05/07/2024 7:55 AM SOLE TRIMMER Respiratory Rate 18 06/27/2023 5:36 PM SOLE TRIMMER Oxygen Saturation 97% 09/01/2024 2:38 PM CDT Inhaled Oxygen Concentration - - Weight 112 kg (247 lb) 10/02/2024 1:18 PM CDT Height 170.2 cm (5' 7) 10/02/2024 1:18 PM CDT Body Mass Index 38.69 10/02/2024 1:18 PM CDT Plan of Treatment Health Maintenance Due Date Last Done Comments Well Child Check for age 3-20 04/27/2021, 12/30/2018, 01/28/2017, Additional history exists COVID-19 vaccine series ( season) 2024 Influenza Vaccine (Season Ended) 2025 02/16/2022, 04/12/2021, 04/27/2020, Additional history exists Depression screening for age 12+ 10/01/2025 10/01/2024, 09/03/2024, 09/01/2024, Additional history exists BMI (ht and wt on same day) for age 18+ 10/02/2025 10/02/2024, 07/29/2024, 08/19/2023, Additional history exists Chlamydia for age 16-24 10/02/2025 10/03/19 25, 06/14/2022, 09/19/2021, Additional history exists Tetanus booster 01/03/2026 01/04/2016 Hepatitis B series for 19+ Completed 06/19, 04/17/2004, 02/18/2004 Tdap Completed 01/04/2016 HPV series for age 9-26 Completed 12/12/2016, 01/03 HIV for age 15-65 Completed 12/30/2018 Meningococcal series for age 11-21 Completed 2019, 01/04/2016 Hepatitis C screening for ag e 18-79 Completed 02/16/2022 Pneumococcal series for age 6-49 Completed 10/02/2024, 06/19/2004, 02/18/2004 Procedures Procedure Name Priority Date/Time Associated Diagnosis Comments URINALYSIS MACROSCOPIC - [facility] ONLY POC DIP ([facility]) Routine 10/02/2024 1:44 PM CDT Increased frequency of urination TSH WITH REFLEX Routine 10/02/2024 1:43 PM CDT Thyroid disorder screen LIPID PANEL W REFLEX MEASURED LDL Routine 10/02/2024 1:43 PM CDT Lipid screening HEMOGLOBIN A1C Routine 10/02/2024 1:43 PM CDT Increased thirst Increased frequency of urination Diabetes mellitus screening CBC WITH AUTO DIFFERENTIAL Routine 10/02/2024 1:43 PM CDT Screening for deficiency anemia Fatigue, unspecified type VITAMIN D 25 (DEFICIENCY) Routine 10/02/2024 1:43 PM CDT Fatigue, unspecified type Vitamin D deficiency COMP METABOLIC PANEL Routine 10/02/2024 1:43 PM CDT Increased thirst Increased frequency of urination INSULIN ANTIBODIES Routine 10/02/2024 1: 43 PM CDT Increased thirst Increased frequency of urination GC CHLAMYDIA TRACH PROBE Routine 10/02/2024 1:42 PM CDT Screen for STD (sexually transmitted disease) URINALYSIS MICROSCOPIC Routine 10/02/2024 1:42 PM CDT Increased frequency of urination URINE CULTURE Routine 10/02/2024 1:42 PM CDT Increased frequency of urination ANTI HCV Routine 02/16/2022 2:19 PM CDT Need for hepatitis C screening test ANTI HIV 1/2 Routine 12/30/2018 12:50 PM CDT Numbness of right anterior thigh from Last 3 Months or Most Recently Relevant to Health Maintenance Results * (ABNORMAL) POCT Urinalysis Dipstick Only [[id number]] (10/02/2024 1:44 PM CDT) PH 6.0 5.0 - 8.0 [facility] SPECIFIC GRAVITY > OR = 1.030 1.001 - 1.035 [facility] Comment: Specific [place] values resulted are outside the analytical measurement range of this device. Recommend repeat/additional testing as clinically indicated. GLUCOSE NEGATIVE NEGATIVE [facility] BILIRUBIN NEGATIVE NEGATIVE [facility] KETONES NEGATIVE NEGATIVE [facility] OCCULT BLOOD TRACE(A) NEGATIVE [facility] PROTEIN NEGATIVE NEGATIVE [facility] NITRITE NEGATIVE NEGATIVE [facility] LEUKOCYTE ESTERASE NEGATIVE NEGATIVE [facility] Urine URINE SPECIMEN / Unknown 10/02/2024 1:44 PM CDT 10/02/2024 1:45 PM CDT us Judi Pettit RECRUITMENT OFFICER URINE Final Res ult [facility] [address] [facility] [place] [address], [facility] [address] , [place] [address] * INSULIN ANTIBODIES (10/02/2024 1:43 PM CDT) INSULIN AUTOANTIBODY <0.4 <0.4 U/mL [facility], Blood BLOOD SPECIMEN / Unknown 10/02/2024 1:43 PM CDT 10/02/2024 1:43 PM CDT Judi Pettit RECRUITMENT OFFICER SEND OUTS Final Res ult Performing Organization Address [facility] Co de Phone Number [facility] [address] [place] [address], [facility], [address] [place] [address] * HEMOGLOBIN A1C (10/02/2024 1:43 PM CDT) HEMOGLOBIN A1C 4.9 <5.7 % [facility] Comment: For the purpose of screening for the presence of diabetes: <5.7% Consistent with the absence of diabetes 5.7-6.4% Consistent with increased risk for diabetes (prediabetes) > or =6.5% Consistent with diabetes This assay result is consistent with a decreased risk of diabetes. Currently, no consensus exists regarding use of hemoglobin A1c for diagnosis of diabetes in children. According to [place] Diabetes Association (ADA) guidelines, hemoglobin A1c <7.0% represents optimal control in non- diabetic patients. Different metrics may apply to specific patient populations. Standards of Medical Care in Diabetes(ADA). Blood BLOOD SPECIMEN / Unknown 10/02/2024 1:43 PM CDT 10/02/2024 1:43 PM CDT Judi Pettit NP CHEMISTRY Final Res ult Performing Organization Address City/[facility]/ZIP Co de Phone Number [facility] [address] [place] [address], [facility] [address] [place] [address] * TSH WITH REFLEX (10/02/2024 1:43 PM CDT) TSH W/REFLEX TO FT4 1.48 mIU/L [facility] Comment: Reference Range > or = 20 Years 0.40-4.50 Ranges First trimester 0.26-2.66 Second trimester 0.55-2.73 Third trimester 0.43-2.91 Blood BLOOD SPECIMEN / Unknown 10/02/2024 1:43 PM CDT 10/02/2024 1:43 PM CDT Judi Pettit RECRUITMENT OFFICER CHEMISTRY Final Res ult [employer] [facility] [address] [place] [address], [facility] [address] [place] [address] * LIPID PANEL W REFLEX MEASURED LDL (10/02/2024 1:43 PM CDT) CHOLESTEROL, TOTAL 170 <200 mg/dL [facility] HDL CHOLESTEROL 74 > OR = 50 mg/dL [facility] TRIGLYCERIDES 51 <150 mg/dL [facility] LDL-CHOLESTEROL 83 mg/dL (calc) [facility] Comment: Reference range: <100 Desirable range <100 mg/dL for primary prevention; <70 mg/dL for patients with CHD or diabetic patients with > or = 2 CHD risk factors. LDL-C is now calculated using the Jovany-Tor calculation, which is a validated novel method providing better accuracy than the Friedewald equation in the estimation of LDL-C. Jovany THOMASON et al. KURTIS. 2013;310(19): 3074-4435 (http://education.Pwinty.Campus Diaries/faq/UEZ693) CHOL/HDLC RATIO 2.3 <5.0 (calc) [facility] NON HDL CHOLESTEROL 96 <130 mg/dL (calc) [facility] Comment: For patients with diabetes plus 1 major ASCVD risk factor, treating to a non-HDL-C goal of <100 mg/dL (LDL-C of <70 mg/dL) is considered a therapeutic option. Blood BLOOD SPECIMEN / Unknown 10/02/2024 1:43 PM CDT 10/02/2024 1:43 PM CDT us Judi Pettit RECRUITMENT OFFICER CHEMISTRY Final Res ult Performing Organization Address [facility]/ZIP Co de Phone Number [employer] [facility] [address] [place] [address], [place] [phone] [facility] [address] [place] [address] * (ABNORMAL) VITAMIN D 25 (DEFICIENCY) (10/02/2024 1:43 PM CDT) VITAMIN D,25-OH,TOTAL,IA 24(L) 30 - 100 ng/mL [facility] Comment: Vitamin D Status 25-OH Vitamin D: Deficiency: <20 ng/mL Insufficiency: 20 - 29 ng/mL Optimal: > or = 30 ng/mL For 25-OH Vitamin D testing on patients on D2-supplementation and patients for whom quantitation of D2 and D3 fractions is required, the QuestAssureD(TM) 25-OH VIT D, (D2,D3), LC/MS/MS is recommended: order code [id number] (patients >2yrs). See Note 1 Note 1 For additional information, please refer to http://education.Alchimer/faq/RXC440 (This link is being provided for informational/ educational purposes only.) Blood BLOOD SPECIMEN / Unknown 10/02/2024 1:43 PM CDT 10/02/2024 1:43 PM CDT us Judi Pettit RECRUITMENT OFFICER SEND OUTS Final Res ult Performing Organization Address City/[facility]/ZIP Co de Phone Number [employer] [facility] [address] [facility] [place] [address], [place] [phone] [facility] [address] [place] [address] * CBC AND DIFFERENTIAL (10/02/2024 1:43 PM CDT) [facility] WHITE BLOOD CELL COUNT 6.1 3.8 - 10.8 Thousand/u L [facility] RED BLOOD CELL COUNT 4.42 3.80 - 5.10 Million/uL [facility] HEMOGLOBIN 13.3 11.7 - 15.5 g/dL [facility] HEMATOCRIT 40.4 35.0 - 45.0 % [facility] MCV 91.4 80.0 - 100.0 fL [facility] MCH 30.1 27.0 - 33.0 pg [facility] MCHC 32.9 32.0 - 36.0 g/dL [facility] Comment: For adults, a slight decrease in the calculated MCHC value (in the range of 30 to 32 g/dL) is most likely not clinically significant; however, it should be interpreted with caution in correlation with other red cell parameters and the patient's clinical condition. RDW 13.1 11.0 - 15.0 % [facility] PLATELET COUNT 374 140 - 400 Thousand/u L [facility] MPV 10.2 7.5 - 12.5 fL [facility] ABSOLUTE NEUTROPHILS 3,562 1,500 - 7,800 cells/uL [facility] ABSOLUTE LYMPHOCYTES 1,793 850 - 3,900 cells/uL [facility] ABSOLUTE MONOCYTES 464 200 - 950 cells/uL [facility] ABSOLUTE EOSINOPHILS 232 15 - 500 cells/uL [facility] ABSOLUTE BASOPHILS 49 0 - 200 cells/uL [facility] NEUTROPHILS 58.4 % [facility] LYMPHOCYTES 29.4 % [facility] MONOCYTES 7.6 % [facility] EOSINOPHILS 3.8 % [facility] BASOPHILS 0.8 % [facility] Blood BLOOD SPECIMEN / Unknown 10/02/2024 1:43 PM CDT 10/02/2024 1:43 PM CDT us Judi Pettit NP HEMATOLOGY Final Res ult [employer] [facility] [address] [place] [address], [facility] [address] [place] [address] * COMP METABOLIC PANEL (10/02/2024 1:43 PM CDT) Pathologist [facility] GLUCOSE 78 65 - 99 mg/dL [facility] Comment: Fasting reference interval UREA NITROGEN (BUN) 14 7 - 25 mg/dL [facility] CREATININE 0.88 0.50 - 0.96 mg/dL [facility] EGFR 96 > OR = 60 mL/min/1. 73m2 [facility] BUN/CREATININE RATIO SEE NOTE: 6 - 22 (calc) [facility] Comment: Not Reported: BUN and Creatinine are within reference range. SODIUM 141 135 - 146 mmol/L [facility] POTASSIUM 4.0 3.5 - 5.3 mmol/L [facility] CHLORIDE 106 98 - 110 mmol/L [facility] CARBON DIOXIDE 25 20 - 32 mmol/L [facility] CALCIUM 9.5 8.6 - 10.2 mg/dL [facility] PROTEIN, TOTAL 7.1 6.1 - 8.1 g/dL [facility] ALBUMIN 4.8 3.6 - 5.1 g/dL [facility] GLOBULIN 2.3 1.9 - 3.7 g/dL (calc) [facility] ALBUMIN/GLOBULIN RATIO 2.1 1.0 - 2.5 (calc) [facility] BILIRUBIN, TOTAL 0.5 0.2 - 1.2 mg/dL [facility] ALKALINE PHOSPHATASE 55 31 - 125 U/L [facility] AST 18 10 - 30 U/L [facility] ALT 15 6 - 29 U/L [facility] Blood BLOOD SPECIMEN / Unknown 10/02/2024 1:43 PM CDT 10/02/2024 1:43 PM CDT Judi Pettit RECRUITMENT OFFICER CHEMISTRY Final Res ult [employer] [facility] [address] [place] [address], [place] [phone] [facility] [address] [place] [address] * (ABNORMAL) URINALYSIS MICROSCOPIC [44427.1] - routine (10/02/2024 1:42 PM CDT) RBC 3-5(A) 0-2, None Seen /HPF 10/03/2024 12:05 AM CDT [facility] WBC 11-25(A) 0-2, 3-5, None Seen /HPF 10/03/2024 12:05 AM CDT [facility] BACTERIA Many(A) None Seen, Rare, Few Bacteria/ HPF 10/03/2024 12:05 AM CDT [facility] EPITHELIAL CELLS Many(A) None Seen, Few Epi/HPF 10/03/2024 12:05 AM CDT [facility] HYALINE CASTS 3-5 0-2, 3-5 /LPF 10/03/2024 12:05 AM CDT [facility] AMORPHOUS Present(A) (none) 10/03/2024 12:05 AM CDT [facility] Urine URINE SPECIMEN / Unknown Non-Blood / Unknown 10/02/2024 1:42 PM CDT 10/02/2024 1:42 PM CDT Narrative [facility] - 10/03/2024 12:05 AM CDT Specimen exceeds standard time for testing us Judi Pettit RECRUITMENT OFFICER URINE Final Res ult [facility] [address] [place] [address], [place] * GC CHLAMYDIA TRACH PROBE (10/02/2024 1:42 PM CDT) CHLAMYDIA PROBE Negative 7:04 AM CDT [facility] N GONORRHOEAE PROBE Negative 10/03/2024 7:04 AM CDT [facility] Other URINE SPECIMEN / Unknown Non-Blood / Unknown 10/02/2024 1:42 PM CDT 10/02/2024 1:42 PM CDT Judi Pettit RECRUITMENT OFFICER MICROBIOLOGY Final Res ult Performing Organization Address City/[facility]/ZIP Co de Phone Number [facility] [address] [place] [address], [place] * URINE CULTURE [[id number]] (10/02/2024 1:42 PM CDT) Pathologist [facility] CULTURE 10-50,000 CFU/mL of multiple organisms, probable contaminants 10/03/2024 10:07 PM CDT [facility] Urine URINE SPECIMEN / Unknown Non-Blood / Unknown 10/02/2024 1:42 PM CDT 10/02/2024 1:42 PM CDT us Judi Pettit RECRUITMENT OFFICER MICROBIOLOGY Final Res ult Performing Organization Address City/[facility]/ZIP Co de Phone Number [facility] [address] [place] [address], [place] * ANTI HCV (02/16/2022 2:19 PM CDT) HEPATITIS C ANTIBODY Non-React alfonso Non-React alfonso 02/17/2022 6:26 AM CDT [facility] Comment:Antibodies to HCV no t detected; does not exclude the possibility of exposure to HCV. Blood BLOOD SPECIMEN / Unknown Venipuncture / Unknown 02/16/2022 2:19 PM CDT 02/16/2022 2:19 PM CDT us Judi Pettit RECRUITMENT OFFICER SEND OUTS Final Res ult [facility] [address] [place] [address], * ANTI HIV 1/2 (12/30/2018 12:50 PM CDT) HIV-1/HIV-2 ANTIBODY Non-Reacti ve Non-Reacti ve 12/30/2018 9:16 PM CDT [facility] Comment:HIV-1 p24 and HIV-1/ HIV-2 Ab not detected. Blood BLOOD SPECIMEN / Unknown Venipuncture / Unknown 12/30/2018 12:50 PM CDT 12/30/2018 12:50 PM CDT us Reva Reyes MD SEND OUTS Final R esult [facility] [address] [place] [phone], from Last 3 Months or Most Recently Relevant to Health Maintenance Insurance [facility] Advance Directives * Full Code (Latest Code Status on File) Date Activated Date Inactivated Comments 03/25/2015 7:03 AM 03/25/2015 2:24 PM Care Teams Skin Care Instructor Relationship Specialty Start Date End Date Judi Pettit, RECRUITMENT OFFICER [address] [place] [address] PCP - General Nurse Practitioner 10/02/24 Ashley Mcwilliams MBBS Consulting Physician Family Practice 12/09/23 Peg Newberry, PT Physical Therapist Physical Therapist 12/09/[address] [address] Sql Dba 12/09/23
--- OUTSIDE RECORDS SUMMARY | 2024-11-15 15:02 | XMS_ITS | Patient Health Record ---
Author Organization [facility] Address [address] [facility] [address] [place] [address] Care Team Providers Care Jewel Bearing Facer Name Role Phone Yany Ross MD Primary Care Provider [phone] Marcelo WESTBROOK, DARYA Unavailable [phone] Romaine WESTBROOK, Artur Unavailable [phone] Allergies Allergen (clinical drug ingredient) Drug/Non Drug Allergy documented on EMR Reaction Allergy Type Onset Date Status Robitussin with codeine (uncoded) Rash and anaphylaxis Allergy Active erythromycin Erythromycin Rash and anaphylaxis Drug Allergy Active Reason For Referral No Information Medications Medication SIG (Take, Route, Fr equency, Duration) Notes Start Date End Date Status Qvar Active Albuterol Sulfate HFA Active metFORMIN HCl Active Montelukast Sodium A ctive Vitamin D Active Problems Problem Type SNOMED Code ICD Code Onset Dates Problem Status W/U Status Risk Notes Problem Gallbladder disease (32358140) Other specified diseases of gallbladder (K82.8) Active confirmed Plan Of Treatment No Information Insurance Providers Payer Name Payer Address Payer Phone Subscriber Number Group Number Insured Name Patient Relationship to Insured Coverage Start Date Coverage End Date [employer]AP [address] [address] [place] [phone] [id number] [phone] [id number] Supriya Molina Self - patient is the insured Medical (General) History Medical History History ICD Code Biliary dyskinesia Asthma Surgical History Surgery Date(Month/Year) Laparoscopic cholecystectomy 10/04/15
--- OUTSIDE RECORDS SUMMARY | 2024-11-15 15:02 | XMS_ITS | Encounter Summary ---
Author Organization [facility] Address [address] [facility] [place] [address] Care Team Providers Care Packer Insulation Name Role Phone Kirill Gunderson MD Primary Care Provider [phone] Elizabeth Mejia DO Primary Care Provider [phone] [facility] Primary Care Provider Judi Pettit NP Primary Care Provider [phone] Encounter Details Date Type Department Care Team (Late st Contact Info) Description 2003 [facility] [address] [place] [address] Kirill Gunderson MD [address] [place] [address] [facility] (Primary Dx) Social History Tobacco Use Types Packs/Day Years Used Date Smoking Tobacco: Former Cigarettes Smokeless Tobacco: Never Comments:Mom smokes outside. Alcohol Use Standard Drinks/Week Comments Not Asked 0 (1 standard drink = 0.6 oz pur e alcohol) Comments No Sex and Gender Information Value Date Recorded Sex Assigned at Not on file Legal Sex Female 4:34 AM [employer] Gender Identity Not on file Sexual Orientation Not on file documented as of this encounter Plan of Treatment Not on file documented as of this encounter Visit Diagnoses Diagnosis HEALTHY PATHWAY- Primary documented in this encounter Additional Health Concerns Infection Onset Date Last Indicated Resolved Time Rule Out COVID-19 08/13/2020 08/13/2020 08/13/2020 2:05 AM CDT Rule Out COVID-19 08/21/2021 08/21/2021 08/21/2021 1:59 AM CDT Rule Out C-difficile 06/26/2022 06/26/2022 023 12:09 PM [employer] Influenza 06/02/2024 06/02/2024 06/09/2024 11:3 9 PM [employer] documented as of this encounter Care Teams Packer Insulation Relationship Specialty Start Date End Date Kirill Gunderson MD [address] [place] [id number] PCP - General 03 07/15/16 Elizabeth Mejia DO [address] [place] [id number] PCP - General Family Practice 07/16/16 08/12/24 Rom Angulo [id number] [place] [address] PCP - General 08/13/24 08/16/24 [place] [id number] [place] [address] PCP - General Family Medicine 08/17/24 documented as of this encounter
[2024-11-15 15:14] VITALS: BP 103/58; PULSE 78; RESP 20; TEMP 36.9; O2SAT 97; BMI 39.6
--- NOTE | 2024-11-15 15:38 | CRLHL7_ITS ---
For Patients: As a result of the Century Cures Act, medical imaging exams and procedure reports are released immediately into your electronic medical record. You may view this report before your referring provider. If you have questions, please contact your health care provider. INDICATION: RLQ PAIN X 2 DAYS TECHNIQUE: CT abdomen and pelvis acquired with 123 cc Isovue 370 IV contrast. COMPARISON: July 2015. FINDINGS: Lower chest: The visualized lower lungs are aerated. No pleural or pericardial effusion. ABDOMEN: Liver: Normal enhancement. No focal suspicious hepatic lesions. Gallbladder and biliary: Cholecystectomy. Normal caliber bile ducts. Spleen: Normal size and enhancement. Pancreas: Normal enhancement without peripancreatic inflammatory changes or ductal dilatation. Adrenal glands: Normal adrenal glands. Kidneys and ureters: Normal enhancement. No radio-opaque calculi. No hydroureteronephrosis. Subcentimeter hypodensities are too small to characterize however statistically represent cysts. GI tract: Stomach is partially distended oral debris and air. Normal caliber small and large bowel loops. Normal appendix. A few colonic diverticula without diverticulitis. Vascular structures: Normal caliber abdominal aorta. Lymph nodes: No lymphadenopathy in the abdomen or pelvis by size criteria. Peritoneum: Trace free fluid in the pelvis. No free air or focal drainable collection. PELVIS: Genitourinary system: Urinary bladder is decompressed. Low-lying IUD with 1 of the distal ends perforating into the myometrium. SKELETAL STRUCTURES AND SOFT TISSUES: Transitional lumbosacral anatomy. IMPRESSION: 1. Low-lying IUD with 1 of the distal ends perforating into the myometrium. 2. Normal appendix. Please note that all CT scans at this facility use dose modulation, iterative reconstruction, and/or weight-based dosing when appropriate to reduce radiation dose to as low as reasonably achievable. Dictated by Morgan Raymond MD @ 11/15/2024 4:31:54 PM (Electronically Signed)
--- NOTE | 2024-11-15 15:41 | ED.ABDPAIN ---
HPI - Abdominal Pain General Chief Complaint: Abdominal Pain <Harjinder Valladares MD - Last Filed: 11/15/24 15:43> Stated Complaint: Severe Pain, middle lower area <Harjinder Valladares MD - Last Filed: 11/15/24 15:43> Time Seen by Provider: 11/15/24 15:35 <Harjinder Valladares MD - Last Filed: 11/15/24 15:43> History of Present Illness HPI narrative: Patient is a 18-year-old woman who comes in today with 2 days of right lower quadrant pain. The pain radiates to the umbilicus. She has no dysuria. She states she is not is on control. She has had no fevers no chills no night sweats no nausea no vomiting. She is status post cholecystectomy as her only previous abdominal surgery. Patient states the pain is 6/10 and dull. No other significant symptoms. <Harjinder Valladares MD - Last Filed: 11/15/24 15:43> Related Data Home Medications: Home Medications ?Medication ?Instructions ?Recorded ?Confirmed albuterol sulfate 2.5 mg/3 mL 1 Q6H PRN wheezing 11/15/24 (0.083 %) solution for nebulization albuterol sulfate 90 mcg/actuation 1 - 2 puff inhalation Q4H PRN 11/15/24 11/15/24 aerosol inhaler (Ventolin HFA) wheezing bupropion HCl 150 mg 24 hr tablet, 150 mg PO QAM 11/15/24 11/15/24 extended release hydroxyzine pamoate 50 mg capsule 50 - 100 mg PO Q6H PRN anxiety 11/15/24 11/15/24 mometasone-formoterol HFA 200 inhalation 11/15/24 mcg-5 mcg/actuation aerosol inhaler (Dulera) sertraline 100 mg tablet 150 mg PO QAM 11/15/24 11/15/24 Previous Rx's ?Medication ?Instructions ?Recorded ketorolac 10 mg tablet 10 mg PO TID 5 days #15 tabs 11/15/24 <Harjinder Valladares MD - Last Filed: 11/15/24 15:43> Allergies/Adverse Reactions: Allergies Allergy/AdvReac Type Severity Reaction Status Date / Time azithromycin (From Zithromax) Allergy Intermediate Hives Verified 11/15/24 16:04 codeine Allergy Intermediate Hives Verified 11/15/24 16:04 guaifenesin (From Robitussin) Allergy Intermediate Hives Verified 11/15/24 16:04 <Harjinder Valladares MD - Last Filed: 11/15/24 15:43> Review of Systems Status of ROS Reports: 10 or more systems reviewed and unremarkable except as noted in History and below <Harjinder Valladares MD - Last Filed: 11/15/24 15:43> [facility] Social History: Social History Smoking Status: Never smoker Do you use any of these nicotine containing products: None Second hand tobacco smoke exposure: No How often do you have a drink containing alcohol: never AUDIT-C Alcohol total score: 0 Non-prescribed substance use: denies use service: No <Harjinder Valladares MD - Last Filed: 11/15/24 15:43> Exam Narrative: Exam Narrative: EXAM GENERAL: Patient appears comfortable and well. EYES: No scleral icterus. LYMPH: No supraclavicular or cervical lymphadenopathy. SKIN: Visible skin seen during exam normal or with benign process only. EXT: No dependent lower extremity pedal edema. HEART: Regular rate and rhythm with no murmurs, rubs, or gallops. LUNGS: Clear to auscultation bilaterally with no crackles or wheezes. ABD: Soft, non tender, non distended. PSYCH: Good eye contact, speech is not pressured. <Harjinder Valladares MD - Last Filed: 11/15/24 15:43> Const: Vital Signs, click to edit/add: Vital Signs - 24 hr 11/15/24 15:14 11/15/24 19:00 Temperature 98.4 F Pulse Rate [Left P ulse Oximeter] 78 55 L Respiratory Rate 20 16 Blood Pressure [Ri ght Upper Arm] 103/58 L 114/73 Pulse Oximetry 97 98 Oxygen Delivery Me thod Room Air Room Air <Harjinder Valladares MD - Last Filed: 11/15/24 15:43> Vital Signs, click to edit/add: Vital Signs - 24 hr 11/15/24 15:14 11/15/24 19:00 Temperature 98.4 F Pulse Rate [Left P ulse Oximeter] 78 55 L Respiratory Rate 20 16 Blood Pressure [Ri ght Upper Arm] 103/58 L 114/73 Pulse Oximetry 97 98 Oxygen Delivery Me thod Room Air Room Air <Rosa M Mancuso MD - Last Filed: 11/15/24 19:22> Course Course ED Course: Patient seen examined. CT abdomen pelvis with IV contrast comprehensive metabolic panel lipase CBC UA serum test pending. <Harjinder Valladares MD - Last Filed: 11/15/24 15:43> Patient seen examined. CT abdomen pelvis with IV contrast comprehensive metabolic panel lipase CBC UA serum test pending. I was asked to take over the care of this patient. Her lab work is unremarkable. CT scan shows possible perforation of the myometrium by her IUD. Consulted with Dr. Moreira who recommended an ultrasound. Ultrasound shows well-positioned IUD with left arm going into the myometrium, no perforation. Dr. Moreira recommended pain management and outpatient follow-up in the clinic. <Rosa M Mancuso MD - Last Filed: 11/15/24 19:22> Vital Signs Vital signs: Initial Vital Signs Temperature 98.4 F 11/15/24 15:14 Temperature Source Temporal Artery Scan 11/15/24 15:14 Pulse Rate 78 11/15/24 15:14 Respiratory Rate 20 11/15/24 15:14 Blood Pressure 103/58 L 11/15/24 15:14 Blood Pressure Mean 73 11/15/24 15:14 Blood Pressure Position Sitting 11/15/24 15:14 Pulse Oximetry 97 11/15/24 15:14 Oxygen Delivery Method Room Air 11/15/24 15:14 Vital Signs Temperature 98.4 F 11/15/24 15:14 Pulse Rate 78 11/15/24 15:14 Respiratory Rate 20 11/15/24 15:14 Blood Pressure 103/58 L 11/15/24 15:14 Pulse Oximetry 97 11/15/24 15:14 Oxygen Delivery Method Room Air 11/15/24 15:14 Temperature 98.4 F 11/15/24 15:14 Pulse Rate 55 L 11/15/24 19:00 Respiratory Rate 16 11/15/24 19:00 Blood Pressure 114/73 11/15/24 19:00 Pulse Oximetry 98 11/15/24 19:00 Oxygen Delivery Method Room Air 11/15/24 19:00 <Harjinder Valladares MD - Last Filed: 11/15/24 15:43> Initial Vital Signs Temperature 98.4 F 11/15/24 15:14 Temperature Source Temporal Artery Scan 11/15/24 15:14 Pulse Rate 78 11/15/24 15:14 Respiratory Rate 20 11/15/24 15:14 Blood Pressure 103/58 L 11/15/24 15:14 Blood Pressure Mean 73 11/15/24 15:14 Blood Pressure Position Sitting 11/15/24 15:14 Pulse Oximetry 97 11/15/24 15:14 Oxygen Delivery Method Room Air 11/15/24 15:14 Vital Signs Temperature 98.4 F 11/15/24 15:14 Pulse Rate 78 11/15/24 15:14 Respiratory Rate 20 11/15/24 15:14 Blood Pressure 103/58 L 11/15/24 15:14 Pulse Oximetry 97 11/15/24 15:14 Oxygen Delivery Method Room Air 11/15/24 15:14 Temperature 98.4 F 11/15/24 15:14 Pulse Rate 55 L 11/15/24 19:00 Respiratory Rate 16 11/15/24 19:00 Blood Pressure 114/73 11/15/24 19:00 Pulse Oximetry 98 11/15/24 19:00 Oxygen Delivery Method Room Air 11/15/24 19:00 <Rosa M Mancuso MD - Last Filed: 11/15/24 19:22> MDM - Abdominal Pain MDM Narrative Medical decision making narrative: 18-year-old female with abdominal pain. No life-threatening abnormalities found on examination and workup today. She does have a malpositioned IUD that could potentially be the cause of her pain. Discussed all these things with the patient. She feels comfortable going home with Toradol and following up with OBGYN. We discussed that the IUD position may make it less effective and recommend another form of control in the meantime. <Rosa M Mancuso MD - Last Filed: 11/15/24 19:22> Lab Data Attestation: I reviewed the patient's lab results. <Rosa M Mancuso MD - Last Filed: 11/15/24 19:22> Labs: Lab Results 11/15/24 11/15/24 Range/Units 15:26 15:50 WBC 7.28 (4.50-11.00) K/uL RBC 3.94 L (4.00-5.20) m/uL Hgb 12.2 (12.0-16.0) gm/dL Hct 35.4 (33.0-51.0) % MCV 90 (80-100) fL MCH 31 (26-34) pg MCHC 35 (32-36) gm/dL RDW Coeff of Rajinder 13.1 (11.5-15.5) % Plt Count 322 (140-440) K/uL Neut % (Auto) 55.0 (42.0-72.0) % Lymph % (Auto) 32.8 (20-44) % [place] % (Auto) 7.4 (0.0-11.0) % Eos % (Auto) 4.3 (0.0-7.0) % Baso % (Auto) 0.4 (0.0-3.0) % Neut # (Auto) 4.00 (1.7-7.0) K/uL Lymph # (Auto) 2.39 (0.90-2.90) K/uL [place] # (Auto) 0.50 (0.00-0.90) K/UL Eos # (Auto) 0.31 (0.00-0.50) K/uL Baso # (Auto) 0.03 (0.00-0.30) K/uL Abs Immat Gran (auto) 0.01 (0.00-0.30) K/uL Imm/Tot Granulo (auto) 0.1 % Sodium 138 (135-149) mmol/L Potassium 3.8 (3.6-5.1) mmol/L Chloride 107 (96-114) mmol/L Carbon Dioxide 23 (20-32) mmol/L Anion Gap 8 (7-15) mEq/L BUN 11 (5-24) mg/dL Creatinine 1.2 (0.5-1.5) mg/dL Estimated Creat Clear 70.01 Estimated GFR 66 ml/min Glucose 102 (60-115) mg/dL Calcium 9.0 (8.4-10.6) mg/dL Total Bilirubin 0.3 (0.1-1.5) mg/dL AST 25 (12-35) U/L ALT 19 (4-35) U/L Alkaline Phosphatase 55 (40-150) U/L Total Protein 6.7 (6.0-8.3) g/dL Albumin 4.3 (3.3-5.0) g/dL Lipase 77 (23-300) U/L HCG, Qual Negative (Negative) Urine Color Yellow (Yellow) Urine Appearance Clear (Clear) Urine pH 8.5 (5.0-8.5) Ur Specific [place] 1.020 (1.000-1.030) Urine Protein Negative (Negative) Urine Glucose (UA) Negative (Negative) Urine Ketones Negative (Negative) Urine Blood Negative (Negative) Urine Nitrite Negative (Negative) Urine Bilirubin Negative (Negative) Urine Urobilinogen 0.2 (0.2-1.0) Ur Leukocyte Esterase Negative (Negative) Urine RBC 0-2 (0-2) Urine WBC 0-2 (0-5) Ur Squamous Epith Cells Few (None-Few) Urine Bacteria Few A (None) Urine HCG, Qual Negative (Negative) <Harjinder Valladares MD - Last Filed: 11/15/24 15:43> Lab Results 11/15/24 11/15/24 Range/Units 15:26 15:50 WBC 7.28 (4.50-11.00) K/uL RBC 3.94 L (4.00-5.20) m/uL Hgb 12.2 (12.0-16.0) gm/dL Hct 35.4 (33.0-51.0) % MCV 90 (80-100) fL MCH 31 (26-34) pg MCHC 35 (32-36) gm/dL RDW Coeff of Rajinder 13.1 (11.5-15.5) % Plt Count 322 (140-440) K/uL Neut % (Auto) 55.0 (42.0-72.0) % Lymph % (Auto) 32.8 (20-44) % [place] % (Auto) 7.4 (0.0-11.0) % Eos % (Auto) 4.3 (0.0-7.0) % Baso % (Auto) 0.4 (0.0-3.0) % Neut # (Auto) 4.00 (1.7-7.0) K/uL Lymph # (Auto) 2.39 (0.90-2.90) K/uL [place] # (Auto) 0.50 (0.00-0.90) K/UL Eos # (Auto) 0.31 (0.00-0.50) K/uL Baso # (Auto) 0.03 (0.00-0.30) K/uL Abs Immat Gran (auto) 0.01 (0.00-0.30) K/uL Imm/Tot Granulo (auto) 0.1 % Sodium 138 (135-149) mmol/L Potassium 3.8 (3.6-5.1) mmol/L Chloride 107 (96-114) mmol/L Carbon Dioxide 23 (20-32) mmol/L Anion Gap 8 (7-15) mEq/L BUN 11 (5-24) mg/dL Creatinine 1.2 (0.5-1.5) mg/dL Estimated Creat Clear 70.01 Estimated GFR 66 ml/min Glucose 102 (60-115) mg/dL Calcium 9.0 (8.4-10.6) mg/dL Total Bilirubin 0.3 (0.1-1.5) mg/dL AST 25 (12-35) U/L ALT 19 (4-35) U/L Alkaline Phosphatase 55 (40-150) U/L Total Protein 6.7 (6.0-8.3) g/dL Albumin 4.3 (3.3-5.0) g/dL Lipase 77 (23-300) U/L HCG, Qual Negative (Negative) Urine Color Yellow (Yellow) Urine Appearance Clear (Clear) Urine pH 8.5 (5.0-8.5) Ur Specific [place] 1.020 (1.000-1.030) Urine Protein Negative (Negative) Urine Glucose (UA) Negative (Negative) Urine Ketones Negative (Negative) Urine Blood Negative (Negative) Urine Nitrite Negative (Negative) Urine Bilirubin Negative (Negative) Urine Urobilinogen 0.2 (0.2-1.0) Ur Leukocyte Esterase Negative (Negative) Urine RBC 0-2 (0-2) Urine WBC 0-2 (0-5) Ur Squamous Epith Cells Few (None-Few) Urine Bacteria Few A (None) Urine HCG, Qual Negative (Negative) <Rosa M Mancuso MD - Last Filed: 11/15/24 19:22> Imaging Data CT scan - abdomen: Attestation: I have reviewed the pertinent imaging results. <Rosa M Mancuso MD - Last Filed: 11/15/24 19:22> Radiologist's impression: TECHNIQUE: CT abdomen and pelvis acquired with 123 cc Isovue 370 IV contrast. COMPARISON: July 2015. FINDINGS: Lower chest: The visualized lower lungs are aerated. No pleural or pericardial effusion. ABDOMEN: Liver: Normal enhancement. No focal suspicious hepatic lesions. Gallbladder and biliary: Cholecystectomy. Normal caliber bile ducts. Spleen: Normal size and enhancement. Pancreas: Normal enhancement without peripancreatic inflammatory changes or ductal dilatation. Adrenal glands: Normal adrenal glands. Kidneys and ureters: Normal enhancement. No radio-opaque calculi. No hydroureteronephrosis. Subcentimeter hypodensities are too small to characterize however statistically represent cysts. GI tract: Stomach is partially distended oral debris and air. Normal caliber small and large bowel loops. Normal appendix. A few colonic diverticula without diverticulitis. Vascular structures: Normal caliber abdominal aorta. Lymph nodes: No lymphadenopathy in the abdomen or pelvis by size criteria. Peritoneum: Trace free fluid in the pelvis. No free air or focal drainable collection. PELVIS: Genitourinary system: Urinary bladder is decompressed. Low-lying IUD with 1 of the distal ends perforating into the myometrium. SKELETAL STRUCTURES AND SOFT TISSUES: Transitional lumbosacral anatomy. IMPRESSION: 1. Low-lying IUD with 1 of the distal ends perforating into the myometrium. 2. Normal appendix. <Rosa M Mancuso MD - Last Filed: 11/15/24 19:22> US - abdomen: Attestation: I have reviewed the pertinent imaging results. <Rosa M Mancuso MD - Last Filed: 11/15/24 19:22> Radiologist's impression: TECHNIQUE: Ultrasound pelvis transabdominal and transvaginal. Real time sonographic images with Spectral and color Doppler imaging of the ovaries were obtained. COMPARISON: Same day CT of the abdomen and pelvis. FINDINGS: Uterus: Measures 5.8 x 3.5 x 4.2 cm. Normal echotexture of the myometrium. No masses. Endometrium: Measures 7 mm in thickness. No sign of endometrial mass or fluid. There is an echogenic IUD. The IUD is out of proper position with the distal end in the cervix and the arm extending into the left myometrium. No evidence of uterine perforation. Right ovary: Measures 3.7 x 2.5 x 1.8 cm. No ovarian or adnexal masses. Normal arterial and venous blood flow. Left ovary: Measures 2.9 x 1.6 x 2.6 cm. No ovarian or adnexal masses. Normal arterial and venous blood flow. Cul-de-sac: No significant free fluid. IMPRESSION: Malpositioned IUD extends into the cervix. The arms of the IUD extends into the left myometrium but there is no evidence of perforation. <Rosa M Mancuso MD - Last Filed: 11/15/24 19:22> Discharge Plan Discharge Clinical Impression: Abdominal pain, Malpositioned intrauterine device (IUD) <Harjinder Valladares MD - Last Filed: 11/15/24 15:43> Patient Disposition: Home, Self-Care <Harjinder Valladares MD - Last Filed: 11/15/24 15:43> Condition: Stable <Harjinder Valladaers MD - Last Filed: 11/15/24 15:43> Additional Instructions: Okay to use Toradol as needed/as directed for pain. Take with a full stomach. There is a potential that the IUD is not as effective given its low lying position, recommend another form of control until you discuss this with your OBGYN. Recommend follow-up this week with OBGYN. <Harjinder Valladares MD - Last Filed: 11/15/24 15:43> Prescriptions: New ketorolac 10 mg tablet 10 mg PO TID 5 Days Qty: 15 0RF No Action albuterol sulfate 2.5 mg /3 mL (0.083 %) solution for nebulization 1 Q6H PRN (Reason: wheezing) sertraline 100 mg tablet 150 mg PO QAM hydroxyzine pamoate 50 mg capsule 50 - 100 mg PO Q6H PRN (Reason: anxiety) albuterol sulfate [Ventolin HFA] 90 mcg/actuation HFA aerosol inhaler 1 - 2 puff INHALATION Q4H PRN (Reason: wheezing) bupropion HCl 150 mg tablet extended release 24 hr 150 mg PO QAM Dulera 200-5 mcg/actuation HFA aerosol inhaler inhalation <Harjinder Valladares MD - Last Filed: 11/15/24 15:43> Follow Up/Referrals: Judi Pettit, THERESE, [employer]DNANCE [employer]UCK INSTALLATION SUPERVISOR [Primary Care Provider, Family Practice] <Harjinder Valladares MD - Last Filed: 11/15/24 15:43> Stand Alone Forms: MyHealth Info Instructions <Harjinder Valladares MD - Last Filed: 11/15/24 15:43>
[2024-11-15 15:45] LABS: Ur HCG Qualitative* Negative (Negative)
[2024-11-15 16:03] LABS: Appearance Urine Clear (Clear); Bilirubin Urine Negative (Negative); Color Urine Yellow (Yellow); Glucose Urine Negative (Negative); Ketones Urine Negative (Negative)
[2024-11-15 16:04] LABS: Bacteria Urine Few; Blood Urine Negative (Negative); Leukocyte Esterase Urine Negative (Negative); Nitrite Urine Negative (Negative); Protein Urine Negative (Negative); RBC Urine 0-2 (0-2); Squamous Epithelial Cell Urine Few (None-Few); Urobilinogen Urine 0.2 (0.2-1.0); WBC Urine 0-2 (0-5); pH Urine 8.5 (5.0-8.5)
[2024-11-15 16:07] LABS: Basophils Absolute Auto 0.03 K/uL (0.00-0.30); Basophils Percent Auto 0.4 % (0.0-3.0); Eosinophils Absolute Auto 0.31 K/uL (0.00-0.50); Eosinophils Percent Auto 4.3 % (0.0-7.0); Hematocrit 35.4 % (33.0-51.0); Hemoglobin* 12.2 gm/dL (12.0-16.0); Immature Granulocytes Abs Auto 0.01 K/uL (0.00-0.30); Immature Granulocytes Pct Auto 0.1 %; Lymphocytes Absolute Auto 2.39 K/uL (0.90-2.90); Lymphocytes Percent Auto 32.8 % (20-44); Mean Corpuscular HGB Conc 35 gm/dL (32-36); Mean Corpuscular Hemoglobin 31 pg (26-34); Mean Corpuscular Volume 90 fL (80-100); Monocytes Percent Auto 7.4 % (0.0-11.0); Platelet Count* 322 K/uL (140-440); RDW Coefficient of Variation % 13.1 % (11.5-15.5); Red Blood Count 3.94 m/uL (4.00-5.20); White Blood Count* 7.28 K/uL (4.50-11.00)
[2024-11-15 16:09] LABS: Slide Review Reflex No
[2024-11-15 16:33] LABS: Albumin* 4.3 g/dL (3.3-5.0); Chloride* 107 mmol/L (96-114); Sodium* 138 mmol/L (135-149)
[2024-11-15 16:34] LABS: Potassium* 3.8 mmol/L (3.6-5.1)
[2024-11-15 16:36] LABS: Alanine Aminotransferase* 19 U/L (4-35); Alkaline Phosphatase* 55 U/L (40-150); Anion Gap 8 mEq/L (7-15); Aspartate Amino Transferase* 25 U/L (12-35); Bilirubin Total* 0.3 mg/dL (0.1-1.5); Blood Urea Nitrogen* 11 mg/dL (5-24); Carbon Dioxide* 23 mmol/L (20-32); Creatinine* 1.2 mg/dL (0.5-1.5); Est. Creatinine Clearance* 70.01; Estimated Glomerular Filt Rate 66 ml/min; Lipase* 77 U/L (23-300); Total Protein* 6.7 g/dL (6.0-8.3)
[2024-11-15 16:37] LABS: Glucose* 102 mg/dL (60-115)
[2024-11-15 16:45] LABS: HCG Qualitative Serum* Negative (Negative)
--- NOTE | 2024-11-15 17:10 | CRLHL7_ITS ---
For Patients: As a result of the Century Cures Act, medical imaging exams and procedure reports are released immediately into your electronic medical record. You may view this report before your referring provider. If you have questions, please contact your health care provider. INDICATION: Abdominal pain. Check for IUD perforation. LMP 10/22/2024 TECHNIQUE: Ultrasound pelvis transabdominal and transvaginal. Real time sonographic images with Spectral and color Doppler imaging of the ovaries were obtained. COMPARISON: Same day CT of the abdomen and pelvis. FINDINGS: Uterus: Measures 5.8 x 3.5 x 4.2 cm. Normal echotexture of the myometrium. No masses. Endometrium: Measures 7 mm in thickness. No sign of endometrial mass or fluid. There is an echogenic IUD. The IUD is out of proper position with the distal end in the cervix and the arm extending into the left myometrium. No evidence of uterine perforation. Right ovary: Measures 3.7 x 2.5 x 1.8 cm. No ovarian or adnexal masses. Normal arterial and venous blood flow. Left ovary: Measures 2.9 x 1.6 x 2.6 cm. No ovarian or adnexal masses. Normal arterial and venous blood flow. Cul-de-sac: No significant free fluid. IMPRESSION: Malpositioned IUD extends into the cervix. The arms of the IUD extends into the left myometrium but there is no evidence of perforation. Dictated by Mary Copeland MD @ 11/15/2024 7:10:20 PM (Electronically Signed)
[2024-11-15 19:00] VITALS: BP 114/73; PULSE 55; RESP 16; O2SAT 98
== END 2024-11-15 19:33 | disposition home or self-care (01) ==
PROVIDERS: Internal Medicine; Emergency Provider Family Medicine; PCP Nurse Practitioner Family
DX: R10.31 Right lower quadrant pain (principal); T83.32XA Displacement of intrauterine contraceptive device, initial encounter
CPT/HCPCS: 36415; 74177; 76830; 76856; 80053; 81001; 81003; 81025; 83690; 84703; 85025; 87086; 93976; 99284; 99285; Q9967